=== PATIENT | female | born 1965 | race Caucasian/White ===

== ENCOUNTER 2017-09-07 11:32 | Emergency (ER) | payer OTHER ==
[2017-09-07 11:39] VITALS: BMI 26.5
[2017-09-07] MEDS ORDERED: SODIUM CHLORIDE 1,000 ML IV STA (11:45)
[2017-09-07] MEDS ORDERED: KETOROLAC TROMETHAMINE 30 MG/1 ML VIAL IVPUSH ONE (11:45)
[2017-09-07] MEDS ORDERED: KETOROLAC TROMETHAMINE 30 MG/1 ML VIAL ONE (11:49)
--- NOTE | 2017-09-07 11:49 | PDOC ---
History of Present Illness - General Chief Complaint: Pain Stated Complaint: abdominal pain Time Seen by Provider: 09/07/17 11:36 History Source: Patient Exam Limitations: No Limitations - History of Present Illness Travel History: No Initial Comments: 09/07/17 11:46 51 y/o female with right flank pain that started last night. Went to urgent care and sent here for CT scan. Patient states that pain started in back and now radiating to right groin. No N/V/d/c. Unable to get comfortable. No fever or chills. Took 2 Valium this morning. At urgent care hand blood in urine. No fall or trauma or rash. No hx of kidney stone. Denies dysuria or hematuria. Timing/Duration: reports: constant, getting worse Quality: reports: aching Abdominal Pain Onset Location: reports: flank Pain Radiation: reports: groin Activities at Onset: reports: none Treatment Prior to Arrive: worse with: analgesics Aggravating Factors: improves with: None Past History - Past Medical History Allergies/Adverse Reactions: Allergies Allergy/AdvReac Type Severity Reaction Status Date / Time No Known Allergies Allergy Verified 09/07/17 11:41 Home Medications: Ambulatory Orders Diazepam [Valium -] 5 mg PO DAILY PRN 04/03/14 Duloxetine HCl [Cymbalta] 60 mg PO DAILY 09/07/17 Psychiatric Problems: Yes (ANXIETY) Other medical history: fibromyalgia - Suicide/Smoking/Psychosocial Hx Smoking Status: Yes Smoking History: Current some day smoker Have you smoked in the past 12 months: Yes Number of Cigarettes Smoked Daily: 20 Information on smoking cessation initiated: Yes 'Breaking Loose' booklet given: 09/07/17 Hx Alcohol Use: No Drug/Substance Use Hx: No Substance Use Type: None Review of Systems - Review of Systems Able to Perform ROS?: Yes Is the patient limited Filipino proficient: No Constitutional: No: Chills, Fever HEENTM: No: Throat Pain Respiratory: No: Cough, Shortness of Breath Cardiac (ROS): No: Chest Pain, Lightheadedness, Syncope ABD/GI: No: Abdominal Distended, Diarrhea, Nausea, Vomiting : No: Burning, Dysuria Neurological: No: Headache, Paresthesia All Other Systems: Reviewed and Negative *Physical Exam - Vital Signs Last Vital Signs Temp Pulse Resp BP Pulse Ox 98.1 F 100 H 18 134/93 100 09/07/17 11:36 09/07/17 11:36 09/07/17 11:36 09/07/17 11:36 09/07/17 11:36 - Physical Exam General Appearance: Yes: Nourished, Appropriately Dressed, Mild Distress HEENT: positive: EOMI, MANJULA, Normal ENT Inspection Neck: positive: Trachea midline, Normal Thyroid, Supple. negative: Tender, Rigid Respiratory/Chest: positive: Lungs Clear, Normal Breath Sounds. negative: Chest Tender, Respiratory Distress Cardiovascular: positive: Regular Rhythm, Regular Rate, S1, S2. negative: Edema , JVD, Murmur Gastrointestinal/Abdominal: positive: Normal Bowel Sounds, Flat, Soft. negative : Tender (No RLQ or LLQ tenderness, no RUQ or LUQ tenderness +BS, no rash seen) , Organomegaly, Pulsatile Mass Lymphatic: negative: Adenopathy, Tenderness, Other Musculoskeletal: positive: Normal Inspection. negative: CVA Tenderness Extremity: positive: Normal Capillary Refill, Normal Inspection, Normal Range of Motion Integumentary: positive: Normal Color, Dry, Warm Neurologic: positive: locket maker II-XII NML intact, Fully Oriented, Alert, Normal Mood/ Affect, Normal Response, Motor Strength 04/03 ED Treatment Course - LABORATORY CBC & Chemistry Diagram: 09/07/17 12:02 09/07/17 12:02 - RADIOLOGY Radiology Studies Ordered: 09/07/17 13:15 CT : normal, no stone or appendicitis Progress Note - Progress Note Progress Note: Pt with right flank pain, will CT abdomen/pelvis to r/o kidney stone. Pt is feeling better after fluids and Toradol Patient states that she normally has blood in urine and has been worked up Being worked up for her muscle pain, which this pain may be related to Will discharge home with follow up with PMD If worsens in next 24 hr, return to ER Pt in agreement with plan *DC/Admit/Observation/Transfer Diagnosis at time of Disposition: Flank pain - Discharge Dispostion Disposition: HOME Condition at time of disposition: Stable Admit: No - Patient Instructions Printed Discharge Instructions: DI for Flank Pain Additional Instructions: Fluids, rest, Tylenol Follow up with PMD If worsens in next 24 hr return to ER
[2017-09-07 12:02] LABS: URINE APPEARANCE Clear; URINE BILIRUBIN Negative (NEGATIVE); URINE GLUCOSE (UA) Negative (NEGATIVE); URINE KETONE Negative (NEGATIVE); URINE LEUK ESTERASE Negative (NEGATIVE); URINE NITRITE Negative (NEGATIVE); URINE PROTEIN Negative (NEGATIVE); URINE UROBILINOGEN 0.2 (0.2-1.0)
[2017-09-07 12:03] LABS: URINE BLOOD 2+ (NEGATIVE); URINE COLOR YELLOW
[2017-09-07 12:09] LABS: EOSINOPHIL 1.4 % (0-4.5); MEAN PLT VOLUME 10.8 fl (7.5-11.1); NEUTROPHILS 57.9 % (42.8-82.8)
[2017-09-07 12:27] LABS: ALBUMIN 4.2 g/dl (3.5-5.0); ALK PHOS 48 U/L (32-92); ANION GAP 7 (8-16); BILIRUBIN,TOTAL 0.5 mg/dl (0.2-1.0); CALCIUM 9.6 mg/dl (8.4-10.2); CO2 26 mmol/L (22-28); CREATININE 0.9 mg/dl (0.6-1.3); GLUCOSE,RANDOM 134 mg/dl (74-106); SGOT/AST 21 U/L (10-42); SGPT/ALT 19 U/L (10-40); TOT PROT 6.8 g/dl (6.4-8.3)
[2017-09-07 12:35] LABS: MCH 29.7 pg (25.7-33.7); MCHC 33.9 g/dl (32.0-36.0); MEAN CELL VOLUME 87.6 fl (80-96); PLATELET COUNT 266 K/MM3 (134-434); RDW 13.1 % (11.6-15.6); WHITE BLOOD COUNT 8.7 K/mm3 (4.0-10.8)
[2017-09-07 12:36] LABS: BASOPHIL 2.3 % (0-2.0)
[2017-09-07 13:25] VITALS: BP 136/89; PULSE 78; TEMP 98.3
[2017-09-07 14:06] LABS: URINE WBC 0-3 /hpf (3-5)
== END 2017-09-07 13:25 | disposition home or self-care (01) ==
LOC: FER 11:32
PROC: 3E0333Z Introduction of Anti-inflammatory into Peripheral Vein, Percutaneous Approach (ICD-10-PCS; principal; 2017-09-07)
PROC: 3E0337Z Introduction of Electrolytic and Water Balance Substance into Peripheral Vein, Percutaneous Approach (ICD-10-PCS; 2017-09-07)
DX: R10.31 Right lower quadrant pain (principal); F17.210 Nicotine dependence, cigarettes, uncomplicated; F41.9 Anxiety disorder, unspecified
CPT/HCPCS: 36415; 74176; 80053; 81003; 81015; 83690; 85025; 99283-25

== ENCOUNTER 2018-01-18 12:41 | Emergency (ER) | payer OTHER ==
[2018-01-18 13:07] VITALS: BP 152/100; PULSE 82; TEMP 98.2; BMI 28.5
--- NOTE | 2018-01-18 13:07 | PDOC ---
History of Present Illness - General Chief Complaint: Pain Stated Complaint: LEFT ARM PAIN,BACK PAIN, Time Seen by Provider: 01/18/18 12:44 - History of Present Illness Initial Comments: 01/18/18 13:03 52 F with h/o HTN, fibromyalgia, presenting to ED with L arm pain x 1 day. Pt states that it began while she was sitting at her desk at work. She denies any trauma or recent injury. Pain radiates from her shoulder to her wrist. Denies any numbness. Denies limitation in ROM. Pain is not exacerbated by movement. It is not exertional. Pt denies chest pain. Denies SOB. Denies swelling to arm. Denies h/o DVT. Pt is not on OCP or estrogen. Pt states she is worried because her father had heart problems. Pt denies F/C. Denies leg swelling. No recent travel/immobilization. Past History - Past Medical History Allergies/Adverse Reactions: Allergies Allergy/AdvReac Type Severity Reaction Status Date / Time No Known Allergies Allergy Verified 01/18/18 12:51 Home Medications: Ambulatory Orders Diazepam [Valium -] 5 mg PO DAILY PRN 04/03/14 Duloxetine HCl [Cymbalta] 60 mg PO DAILY 09/07/17 Psychiatric Problems: Yes (ANXIETY) - Suicide/Smoking/Psychosocial Hx Smoking Status: Yes Smoking History: Current some day smoker Have you smoked in the past 12 months: Yes Number of Cigarettes Smoked Daily: 20 'Breaking Loose' booklet given: 09/07/17 Hx Alcohol Use: No Drug/Substance Use Hx: No Substance Use Type: None Review of Systems - Review of Systems Comments:: 01/18/18 13:04 "GENERAL/CONSTITUTIONAL: No fever or chills. No weakness. HEAD, EYES, EARS, NOSE AND THROAT: No change in vision. No ear pain or discharge. No sore throat. CARDIOVASCULAR: No chest pain or shortness of breath. RESPIRATORY: No cough, wheezing, or hemoptysis. GASTROINTESTINAL: No nausea, vomiting, diarrhea or constipation. GENITOURINARY: No dysuria, frequency, or change in urination. MUSCULOSKELETAL: +L arm pain, no swelling. No neck or back pain. SKIN: No rash NEUROLOGIC: No headache, vertigo, loss of consciousness, or change in strength/ sensation. ENDOCRINE: No increased thirst. No abnormal weight change. HEMATOLOGIC/LYMPHATIC: No anemia, easy bleeding, or history of blood clots. ALLERGIC/IMMUNOLOGIC: No hives or skin allergy. " *Physical Exam - Physical Exam Comments: 01/18/18 13:05 "GENERAL: Awake, alert, and fully oriented, in no acute distress HEAD: No signs of trauma EYES: PERRLA, EOMI, sclera anicteric, conjunctiva clear ENT: Auricles normal inspection, hearing grossly normal, nares patent, oropharynx clear without exudates. Moist mucosa NECK: Nontender, no stepoffs, Normal ROM, supple, no lymphadenopathy, JVD, or masses LUNGS: Breath sounds equal, clear to auscultation bilaterally. No wheezes, and no crackles HEART: Regular rate and rhythm, normal S1 and S2, no murmurs, rubs or gallops ABDOMEN: Soft, nontender, normoactive bowel sounds. No guarding, no rebound. No masses EXTREMITIES: Normal range of motion, no edema. No clubbing or cyanosis. No cords, erythema, or tenderness NEUROLOGICAL: Cranial nerves II through XII intact. 5/5 strength and sensation in all extremities, Normal speech, normal gait, normal cerebellar function SKIN: Warm, Dry, normal turgor, no rashes or lesions noted. " Heart Score/ECG Review - History History: Slightly suspicious - Electrocardiogram EKG: Normal - Age Age: 45-65 - Risk Factors Risk Factors Heart Score: Yes Hx Hypertension Based on the list above the patient has:: 1-2 risk factors - Troponin Troponin: </= normal limit - Score Heart Score - Total: 2 - ECG Impressions Comment:: 01/18/18 14:43 NSr, no TERESA/STDs, no TWIs, axis wnl, intervals wnl, rate73 ED Treatment Course - LABORATORY CBC & Chemistry Diagram: 01/18/18 13:43 01/18/18 13:43 Medical Decision Making - Medical Decision Making 01/18/18 13:05 52 F with atraumatic L arm pain. Pt with no bony tenderness, no deformity. No indication for X rays. Pt with no swelling, intact distal pulses and perfusion. No signs of arterial or venous thrombosis. Consider anginal equivalent, though pt with few cardiac risk factors. - Labs, trop - EKG - Tylenol 01/18/18 14:43 Labs, trop wnl EKG nonischemic. Pt reassessed - now with improvement of pain s/p tylenol. Pt is well appearing, with normal vitals. Clinically stable for DC at this time. I discussed the physical exam findings, ancillary test results and final diagnoses with the patient. I answered all of the patient's questions. The patient was satisfied with the care received and felt comfortable with the discharge plan and treatment plan. The patient agrees to follow up with the primary care physician within 24-72 hours. *DC/Admit/Observation/Transfer Diagnosis at time of Disposition: Left arm pain - Discharge Dispostion Disposition: HOME - Referrals - Patient Instructions Printed Discharge Instructions: DI for Arm Pain Additional Instructions: Please follow up with your primary doctor for further management of your arm pain. This can sometimes be a sign of heart disease. Although your blood tests and EKG were normal, we cannot rule out all heart disease in the ER. You should also have your blood pressure re-checked, as it was slightly elevated today. If your blood pressure continues to be uncontrolled, you may develop heart disease or kidney disease, which can lead to many senior living complications or even . If you experience worsening arm pain, swelling, numbness, chest pain, shortness of breath, or any other concerning symptoms, return to the ER immediately. - Post Discharge Activity - Attestations Physician Attestion: 01/18/18 14:12 I, Dr. Renny Martínez MD, attest that this document has been prepared under my direction and personally reviewed by me in its entirety. I further attest, that it accurately reflects all work, treatment, procedures and medical decision -making performed by me.
[2018-01-18 14:09] LABS: BASO % 0.6 % (0-2.0); EOS % 1.3 % (0-4.5); HEMATOCRIT 43.4 % (32.4-45.2); HEMOGLOBIN 14.8 GM/dl (10.7-15.3); LYMPH % 20.3 % (8-40); MCH 30.4 pg (25.7-33.7); MCHC 34.1 g/dl (32.0-36.0); MEAN CELL VOLUME 89.2 fl (80-96); MEAN PLT VOLUME 9.4 fl (7.5-11.1); MONO % 4.9 % (3.8-10.2); NEUT % 72.9 % (42.8-82.8); PLATELET COUNT 281 K/MM3 (134-434); RBC 4.86 M/mm3 (3.60-5.2); WHITE BLOOD COUNT 13.5 K/mm3 (4.0-10.8)
[2018-01-18 14:31] LABS: ALBUMIN 3.8 g/dl (3.5-5.0); ALK PHOS 60 U/L (32-92); ANION GAP 6 (8-16); BLOOD UREA NITROGEN 18 mg/dl (7-18); CALCIUM 9.5 mg/dl (8.4-10.2); CHLORIDE 105 mmol/L (98-107); CO2 24 mmol/L (22-28); GLUCOSE,RANDOM 115 mg/dl (74-106); POTASSIUM 3.9 mmol/L (3.5-5.1); SGOT/AST 21 U/L (10-42); SGPT/ALT 32 U/L (10-40); SODIUM 135 mmol/L (136-145); TOT PROT 7.1 g/dl (6.4-8.3)
[2018-01-18 14:40] LABS: BILIRUBIN,TOTAL < 0.5 mg/dl (0.2-1.0); CREATININE < 0.8 mg/dl (0.6-1.3)
--- NOTE | 2018-01-20 07:53 | EKG ---
Test Reason : Blood Pressure : / mmHG Vent. Rate : 073 BPM Atrial Rate : 073 BPM P-R Int : 170 ms QRS Dur : 068 ms QT Int : 382 ms P-R-T Axes : 061 025 041 degrees QTc Int : 420 ms NORMAL SINUS RHYTHM NORMAL ECG NO PREVIOUS ECGS AVAILABLE Confirmed by JALIL WARNER MD ([id number]) on 01/20/2018 7:53:22 AM Referred By: MD SYED Confirmed By:JALIL WARNER MD
== END 2018-01-18 14:50 | disposition home or self-care (01) ==
LOC: FER 12:41
DX: M79.602 Pain in left arm (principal); I10 Essential (primary) hypertension; M79.7 Fibromyalgia; F17.210 Nicotine dependence, cigarettes, uncomplicated
CPT/HCPCS: 36415; 80053; 82550; 84484; 85025; 93005; 99282-25

== ENCOUNTER 2018-04-04 19:32 | Emergency (ER) | payer OTHER ==
[2018-04-04 19:43] VITALS: BP 152/91; PULSE 84; TEMP 98.4; BMI 28.1
--- NOTE | 2018-04-04 22:02 | PDOC ---
History of Present Illness - General Chief Complaint: Injury Stated Complaint: GLASS TABLE FELL ON LEFT FOOT Time Seen by Provider: 04/04/18 19:40 - History of Present Illness Initial Comments: This 52-year-old woman with a history of HTN/anxiety presents with injury to her left foot, earlier this evening, the patient was moving a glass top table when the top fell onto her left foot. She sustained a small laceration of the fifth toe but has had pain and swelling in the foot exam. She has increased pain with weightbearing/walking. No other injury sustained. Patient is unsure when her last tetanus prophylaxis immunization was given. No history of poor wound healing/resistant organism infection or colonization Past History - Past Medical History Allergies/Adverse Reactions: Allergies Allergy/AdvReac Type Severity Reaction Status Date / Time No Known Allergies Allergy Verified 04/04/18 19:33 Home Medications: Ambulatory Orders Diazepam [Valium -] 5 mg PO DAILY PRN 04/03/14 Hydroxychloroquine Sulfate [Plaquenil] 200 mg PO DAILY 04/04/18 COPD: No HTN: Yes Psychiatric Problems: Yes (ANXIETY) Other medical history: CHRONIC PAIN - Suicide/Smoking/Psychosocial Hx Smoking Status: Yes Smoking History: Current some day smoker Have you smoked in the past 12 months: Yes Number of Cigarettes Smoked Daily: 20 Information on smoking cessation initiated: Yes 'Breaking Loose' booklet given: 09/07/17 Hx Alcohol Use: No Drug/Substance Use Hx: Yes (MEDICAL MARIJUANA) Substance Use Type: None Review of Systems - Review of Systems Able to Perform ROS?: Yes Comments:: 12 point review of systems is negative except for what is noted in the history of present illness *Physical Exam - Vital Signs Last Vital Signs Temp Pulse Resp BP Pulse Ox 98.4 F 84 16 152/91 100 04/04/18 19:39 04/04/18 19:39 04/04/18 19:39 04/04/18 19:39 04/04/18 19:39 - Physical Exam Comments: GENERAL: Adult female, alert and oriented 3, in no acute distress EXTREMITIES: Left foot-mild generalized edema without deformity/point tenderness /ecchymosis 0.5 cm nonbleeding, superficial laceration of the distal phalanx of the fifth toe; nonbleeding, 0.5 cm abrasion at base of fourth toe Motor/sensory functioning intact with excellent capillary refill Remainder of the extremity exam is normal NEUROLOGICAL: Cranial nerves II through XII grossly intact. Normal speech. No focal neurological deficits. MUSCULOSKELETAL: Back non-tender to palpation, no CVA tenderness SKIN: Warm, Dry, normal turgor, no rashes or lesions noted. ED Treatment Course - RADIOLOGY Radiology Studies Ordered: Category Date Time Status FOOT-LEFT [RAD] Stat Radiology 04/04/18 19:38 Ordered Progress Note - Progress Note Progress Note: Left foot x-ray performed and preliminary interpretation by Imaging information technology project manager: No evidence of fracture/dislocation or other acute process noted. Superficial laceration and abrasion cleansed under sterile technique using sterile normal saline. Laceration closed using Dermabond skin adhesive with good apposition of skin edges. Boostrix immunization administered. Patient will be discharged with instructions to keep foot elevated as much as possible; she should return to ER see her doctor if foot becomes more erythematous/swollen or painful *DC/Admit/Observation/Transfer Diagnosis at time of Disposition: Contusion of left foot Qualifiers: Encounter type: initial encounter Qualified Code(s): S90.32XA - Contusion of left foot, initial encounter Laceration of fifth toe of left foot Qualifiers: Encounter type: initial encounter Qualified Code(s): S91.115A - Laceration without foreign body of left lesser toe(s) without damage to nail, initial encounter - Discharge Dispostion Disposition: HOME Condition at time of disposition: Stable - Referrals - Patient Instructions Printed Discharge Instructions: DI for Laceration Repair With Dermabond Additional Instructions: elevate left foot as much as possible for the next 2 days return or see your doctor if area becomes more painful/swollen/red - Post Discharge Activity
[2018-04-04] MEDS ORDERED: DIPHTH,PERTUSS(ACELL),TET 0.5 ML DISP.SYRIN IM ONE (22:07)
== END 2018-04-04 22:25 | disposition home or self-care (01) ==
LOC: FER 19:32
PROC: 0HQNXZZ Repair Left Foot Skin, External Approach (ICD-10-PCS; principal; 2018-04-04)
PROC: 3E0234Z Introduction of Serum, Toxoid and Vaccine into Muscle, Percutaneous Approach (ICD-10-PCS; 2018-04-04)
DX: S91.115A Laceration without foreign body of left lesser toe(s) without damage to nail, initial encounter (principal); S90.32XA Contusion of left foot, initial encounter; W20.8XXA Other cause of strike by thrown, projected or falling object, initial encounter; Y93.89 Activity, other specified; Y92.9 Unspecified place or not applicable; I10 Essential (primary) hypertension; F41.9 Anxiety disorder, unspecified; F17.210 Nicotine dependence, cigarettes, uncomplicated
CPT/HCPCS: 73630-TC-LT; 90715; 99281-25

== ENCOUNTER 2020-11-13 12:46 | Emergency (ER) | payer OTHER ==
[2020-11-13 12:56] VITALS: BP 138/96; PULSE 77; TEMP 98.8; BMI 27.4
== END 2020-11-13 13:32 | disposition home or self-care (01) ==
LOC: FER 12:46
DX: R22.0 Localized swelling, mass and lump, head (principal)
CPT/HCPCS: 99282-25